=== PATIENT | male | born 1995 | race Caucasian/White ===

== ENCOUNTER 2018-12-02 23:10 | Emergency (ER) | payer OTHER ==
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
[2018-12-03] MEDS: SODIUM CHLORIDE 0.9% 1000ML 1,000 ML IVS ONE (00:01)
[2018-12-03] MEDS: POTASSIUM CHLORIDE ELIXIR 20 MEQ/15 ML UD PO ONE (00:01)
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
[2018-12-03 00:42] VITALS: O2SAT 100
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
[2018-12-03] MEDS: CYCLOBENZAPRINE HCL 10 MG TAB PO ONE (01:06)
[2018-12-03 01:11] VITALS: BP 116/75; TEMP 97.4
== END 2018-12-03 01:11 | disposition home or self-care (01) ==
LOC: ER 23:10
DX: S76.011A Strain of muscle, fascia and tendon of right hip, initial encounter (principal); S39.012A Strain of muscle, fascia and tendon of lower back, initial encounter; E87.6 Hypokalemia; R10.31 Right lower quadrant pain; Z87.891 Personal history of nicotine dependence; V49.88XA Car occupant (driver) (passenger) injured in other specified transport accidents, initial encounter; Y92.410 Unspecified street and highway as the place of occurrence of the external cause
CPT/HCPCS: 36415; 71045; 72040; 73502; 74177; 80053; 81001; 85025; 85610; 85730; J7030

== ENCOUNTER → 2020-05-18 | Outpatient (CLI) | payer SELFPAY ==
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
== END ==
LOC: RAD 08:58
PROVIDERS: ATTEND Orthopaedic Surgery
DX: M25.511 Pain in right shoulder (principal)